=== PATIENT | female | born 1995 | race Caucasian/White ===

== ENCOUNTER 2019-02-16 14:49 | Emergency (ER) | payer BC ==
--- NOTE | 2019-02-16 15:18 | PDOC ---
History of Present Illness - General Stated Complaint: SUBSTANCE ABUSE Time Seen by Provider: 02/16/19 15:17 - History of Present Illness Initial Comments: Patient has been previously admitted as Alexander Cynthia, now changed to Cynthia Akhtar after her divorce. 02/16/19 15:18 PCP: Patient is a 23 year old female brought in to the ED by EMS after she was found at her friends house hallucinating. Patient is non verbal not a baseline. Her ex boyfriend provided the history. Patient went to a green party yesterday, was picked up by her friend at 9pm, smoked weed once then after 5 mins, pt started hallucinating. Windows were closed. She started staring and wouldn't respond to any questions asked. Pt slept at her friends house, after she woke up, she was non verbal, staring, patting to herself. Friend called 911, vitals:BP 120/70 mmHg, 100 bpm, EKG normal as per EMS. The only word she told the project manager entertainment and media was " I am okay". In the ED, patient has been staring, non verbal, patting herself with her hands on the upper extremity. When asked, she noded indicating she wants to go home. ROS unobtainable. 15:00 Call placed to patient's mother who came in to the ED. Stated she has a h.o Post depression with psychosis a month after she had her first child in January,, was admitted to [facility], admitted for a week then discharged. The second episode happened in Jun, [address] [facility] for a week and discharged home on Zoloft. She took it for a while , then stopped after she used to feel sleepy with the meds. Has been seeing a psychologist on/off. Doesn' t have a psychiatrist. Mother reports that they think it was triggered by smoking Marijuana. When she gets this type of psychosis, she is unable to lift herself up. Past Medical Hx: Post depression with psychosis (2 episodes), Learning disability, childhood asthma Allergies: NKDA Past Surgical Hx: 4 yrs ago Social hx: Lives with her sister. . Has a 4 year old son. Smoking- Denies Alcohol- Denies Drugs- Marijuana last night. Occupation: assistant branch operations manager Family Hx: Non contributory. Past History - Travel Traveled outside of the country in the last 30 days: No Close contact w/someone who was outside of country & ill: No - Past Medical History Allergies/Adverse Reactions: Allergies Allergy/AdvReac Type Severity Reaction Status Date / Time No Known Allergies Allergy Verified 02/16/19 17:06 Home Medications: Ambulatory Orders NK [No Known Home Medication] 02/16/19 Review of Systems - Review of Systems Able to Perform ROS?: No Is the patient limited Bengali proficient: No *Physical Exam - Physical Exam Comments: 02/16/19 15:33 General: Young female, lying in bed, staring, non verbal. Nodding to few questions only. HEENT: No Pallor or icterus. Chest: B/L lungs clear, no added sounds CVS: Regular rate and rhythm, S1, S2, no murmur Abdomen: Soft, non tender Ext: No edema. ED Treatment Course - LABORATORY CBC & Chemistry Diagram: 02/16/19 15:47 02/16/19 15:47 Medical Decision Making - Medical Decision Making 02/16/19 15:35 Patient is a 23 year old female with hx of Post depression with psychosis (2 episodes), Learning disability, childhood asthma brought in to the ED by EMS after she was found at her friends house hallucinating 5 minutes after she smoked weed. ---Will send basic labs: CBC, CMP, TSH, UA, urine tox, serum preg --- 1:1 observation. 02/16/19 16:[address] Villafuerte who recommends to admit the patient. U. tox positive for marijuana 02/16/19 16:51 Microblog symphony for admission. 02/16/19 16:55 Will keep patient in the ED for observation. Dr. Villafuerte to see the patient in the morning. Ordered Alprazolam 0.25 mg but pt refused. Ativan 2mg IM given. Patient slept for a while, woke up, started crying. Still non verbal. Will observe overnight in the ED. *DC/Admit/Observation/Transfer Diagnosis at time of Disposition: Psychosis - Referrals - Patient Instructions - Post Discharge Activity
[2019-02-16 15:39] VITALS: BMI 25.4
[2019-02-16 15:55] LABS: HEMATOCRIT 39.8 % (32.4-45.2); HEMOGLOBIN 13.5 GM/dL (10.7-15.3); MCH 34.9 pg (25.7-33.7); MEAN CELL VOLUME 102.4 fl (80-96); MEAN PLT VOLUME 9.2 fl (7.5-11.1); PLATELET COUNT 177 K/MM3 (134-434); RBC 3.89 M/mm3 (3.60-5.2); RDW 12.9 % (11.6-15.6); WHITE BLOOD COUNT 11.5 K/mm3 (4.0-10.0)
--- NOTE | 2019-02-16 16:01 | PDOC ---
Documentation entered by Alonso Salas SCRIBE, acting as scribe for Arturo Montesinos MD. Arturo Montesinos MD: This documentation has been prepared by the Josue mckoy Daniel, SCRIBE, under my direction and personally reviewed by me in its entirety. I confirm that the documentation accurately reflects all work, treatment, procedures, and medical decision making performed by me. Attending Attestation - Resident Resident Name: Augusta Lomeli - ED Attending Attestation I have performed the following: I have examined & evaluated the patient, The case was reviewed & discussed with the resident, I agree w/resident's findings & plan, Exceptions are as noted - HPI HPI: 02/16/19 15:08 The patient is a 23 year old female with a past medical history of depression with psychosis brought in by EMS today for evaluation of altered mental status. The patients ex-boyfriend reports that he picked the patient up from a democrat last night around 9 pm and that they smoked marijuana. He reports that she only smoked one puff. The ex-boyfriend reports that after smoking she became non verbal, started staring, and patting her arms. He notes that this behaviour continued today even after sleeping. Patient is non verbal in ER. As per patient's family, this is consistent with her previous episodes of psychosis. Patient has been admitted to [facility] for episodes of depression w/ psychosis. Her last episode was in 2014. She is not currently on any meds. - Physicial Exam PE: 02/16/19 15:08 GENERAL: Awake, alert, in no acute distress. HEAD: No signs of trauma EYES: PERRLA, EOMI, sclera anicteric, conjunctiva clear ENT: Auricles normal inspection, hearing grossly normal, nares patent, oropharynx clear without exudates. Moist mucosa NECK: Nontender, no stepoffs, Normal ROM, supple, no lymphadenopathy, JVD, or masses LUNGS: Breath sounds equal, clear to auscultation bilaterally. No wheezes, and no crackles HEART: Regular rate and rhythm, normal S1 and S2, no murmurs, rubs or gallops ABDOMEN: Soft, nontender, normoactive bowel sounds. No guarding, no rebound. No masses EXTREMITIES: Normal range of motion, no edema. No clubbing or cyanosis. No cords, erythema, or tenderness NEUROLOGICAL: Cranial nerves II through XII intact. 5/5 strength and sensation in all extremities SKIN: Warm, Dry, normal turgor, no rashes or lesions noted. PSYCH: Nonverbal, patting her hands occasionally, wandering gaze - Medical Decision Making 02/16/19 16:00 23 F with acute altered mental status after smoking marijuana last night. Now nonverbal, possibly responding to internal stimuli. Pt likely having psychotic episode, induced by marijuana. - Labs, tox screen - Psych consult - 1:1 observation 02/16/19 16:[address] Mccallum, who recommends observing overnight, giving ativan PRN for agitation. He will evaluate pt in the morning. Pt signed out to oncoming attending at 5pm
[2019-02-16 16:21] LABS: EPI CELLS 4.6 /HPF (0-5/HPF); HYALINE CASTS 21 /lpf (0-8); PH,URINE 5.5 (5.0-8.0); URINE APPEARANCE CLEAR; URINE BACTERIA 2.4 /hpf (NEGATIVE); URINE BILIRUBIN NEGATIVE (NEGATIVE); URINE COLOR YELLOW; URINE GLUCOSE (UA) NEGATIVE (NEGATIVE); URINE KETONE 1+ (NEGATIVE); URINE LEUK ESTERASE NEGATIVE (NEGATIVE); URINE NITRITE NEGATIVE (NEGATIVE); URINE PROTEIN NEGATIVE (NEGATIVE); URINE RBC 3 /hpf (0-4); URINE UROBILINOGEN 0.2 mg/dL (0.2-1.0)
[2019-02-16 16:22] LABS: ALBUMIN 4.2 g/dl (3.4-5.0); BILIRUBIN,TOTAL 0.6 mg/dL (0.2-1); BLOOD UREA NITROGEN 11.2 mg/dL (7-18); CALCIUM 9.2 mg/dL (8.5-10.1); CREATININE 0.8 mg/dL (0.55-1.3); POTASSIUM 3.9 mmol/L (3.5-5.1); TOT PROT 7.9 g/dl (6.4-8.2)
[2019-02-16 16:38] LABS: COCAINE, UR NEGATIVE ng/ml (CUTOFF=300); METHADONE, UR NEGATIVE ng/ml (CUTOFF=300); OPIATES, URI NEGATIVE ng/ml (CUTOFF=300); PHENCYCLIDINE,URINE NEGATIVE ng/ml (CUTOFF=25); URINE AMPHETAMINES NEGATIVE ng/ml (CUTOFF=500); URINE BARBITURATES NEGATIVE ng/ml (CUTOFF=200); URINE BENZODIAZEPINES NEGATIVE ng/ml (CUTOFF=200)
[2019-02-16 16:39] LABS: URINE WBC 12.6 /hpf (0-5)
[2019-02-16] MEDS ORDERED: LORazepam 2 MG/ML SDV VIAL IVPUSH ONE (16:54)
[2019-02-16] MEDS ORDERED: LORazepam 2 MG/ML SDV VIAL ONE ×2 (17:07→17:35)
[2019-02-16] MEDS ORDERED: ALPRAZolam 0.25 MG TABLET PO ONE (17:12)
[2019-02-16] MEDS ORDERED: ALPRAZolam 0.25 MG TABLET ONE (17:14)
[2019-02-16] MEDS ORDERED: LORazepam 2 MG/ML SDV VIAL IM ONE (17:26)
[2019-02-17 07:09] VITALS: BP 93/59; PULSE 102; TEMP 97.7
--- NOTE | 2019-02-17 09:08 | CON.PSY ---
Psychiatry Consult Chief Complaint: 23 Marcie kelby female mother of 4 year old child brought EWR after smoking Marijuana probably laced with PCP. She apparantly was hallucinatoing and apperaed to be internally preoccupied. She had an uneventful night and apperas to florina herself 5this am. Symptoms: reports: Depersonalization, Hallucinations - Previous Psychiatric Treatment Outpatient: None Inpatient: None - Previous Substance Abuse Treatment Outpatient: None Inpatient: None - Reason for Previous Treatment Reason for Previous Treatment: Drug Abuse - Allergies Allergies: Allergies Allergy/AdvReac Type Severity Reaction Status Date / Time No Known Allergies Allergy Verified 02/16/19 17:06 - Current Living Status Usual Living Arrangement: With Parent - Current Mental Status Evaluation Appearance: Well Groomed Attitude: Cooperative - Mood Mood: Euthymic - Speech/Language Expressive: Coherent - Psychomotor Activity Psychomotor Activity: Normal - Thought Process Thought Process: Intact - Thought Content Hallucinations: Absent Delusions: Absent - Self Perception Self Perception: No Impairment - Cognition Attention: Alert Orientation: Time Memory, Immediate Recall: Intact Memory, Short Term: 3/3 Memory, Remote with Promptin/3 - Concentration Serial Sevens Intact: Yes Simple Calculations Intact: Yes - Abstraction Proverb Interpretation: Intact Judgement: Minimally Impaired - Insight Insight: Intact - Impulse Control Impulse Control: Good Control - Suicidal Ideation Suicidal Ideation: No - Homicidal Ideation Homicidal Ideation: No Assessment/Plan 1) Patient Psychiatrically cleared to be Discharged. 2)No Psych follow up needed.
--- NOTE | 2019-02-17 09:26 | PDOC ---
*Physical Exam - Vital Signs Last Vital Signs Temp Pulse Resp BP Pulse Ox 97.7 F 102 H 102 H 93/59 L 96 02/17/19 07:01 02/17/19 07:01 02/17/19 07:01 02/17/19 07:01 02/17/19 07:01 ED Treatment Course - LABORATORY CBC & Chemistry Diagram: 02/16/19 15:47 02/16/19 15:47 - ADDITIONAL ORDERS Additional order review: 02/16/19 15:47 RBC 3.89 MCV 102.4 H MCHC 34.0 RDW 12.9 MPV 9.2 - Medications Given in the ED: ED Medications Discontinued Medications Generic Name Dose Route Start Last Admin Trade Name Freq PRN Reason Stop Dose Admin Alprazolam 0.25 mg 02/16/19 17:12 02/16/19 17:41 Xanax - PO 02/16/19 17:13 Not Given ONCE ONE Lorazepam 2 mg 02/16/19 16:52 02/16/19 17:41 Ativan Injection - IVPUSH 02/16/19 16:53 Not Given ONCE ONE Lorazepam 1 mg 02/16/19 16:54 02/16/19 17:41 Ativan Injection - IVPUSH 02/16/19 16:55 Not Given ONCE ONE Lorazepam 2 mg 02/16/19 17:26 02/16/19 17:40 Ativan Injection - IM 02/16/19 17:27 2 mg ONCE ONE Administration Medical Decision Making - Medical Decision Making 02/17/19 09:26 pt seen by psych in the AM at 900, cleared by Dr Mccallum, no events, no hallucinations or delusions. no si or hi, sitter removed likely events from PCP/marijuana use cautioned on side effect profile of marijuana and drugs Pt to be discharged in stable condition. Patient made aware of clinical impression, treatment recommendations and disposition plan, return precautions discussed (including but not limited to new or persistent/worsening symptoms, pain, fevers, or signs of infection, chest pain, respiratory distress, inability to tolerate oral intake, dehydration, syncope, or neurologic changes) . Follow up with PMD and/or specialist as recommended, follow up information provided, take medications as instructed for duration of time. continue with supportive care, avoid triggers and precipitants. All questions answered to patient's satisfaction and expressed understanding and comfort with this. At the time of discharge, the patient is alert, clinically improved, tolerating po and verbalizes understanding of instructions, satisfied with the care received and felt comfortable with the plan. Patient does not suffer from an acute life- threatening medical condition at this time and is safe for outpatient follow- up. *DC/Admit/Observation/Transfer Diagnosis at time of Disposition: Marijuana intoxication - Discharge Dispostion Disposition: HOME Condition at time of disposition: Improved Decision to Admit order: No - Referrals Referrals: Luis Mccallum MD [Staff Physician] - [facility] [place] [Provider Group] [facility] [Provider Group] - Patient Instructions Printed Discharge Instructions: Toxicology Screen, Drug Abuse and Drug Addiction Additional Instructions: you were evaluated in the department for hallucinations likely secondary to marijuana use be aware of side effects of street drugs, as this can severely impair you this can affect your health and baby negatively follow up with psychiatry and primary doctor for further management and evaluation and care. - Post Discharge Activity
[2019-02-17] MEDS ORDERED: ACETAMINOPHEN 325 MG TABLET (FP) PO ONE (09:53)
[2019-02-17] MEDS ORDERED: ACETAMINOPHEN 325 MG TABLET (FP) ONE (09:55)
== END 2019-02-17 11:45 | disposition home or self-care (01) ==
LOC: JER 14:49
DX: F12.122 Cannabis abuse with intoxication with perceptual disturbance (principal)
CPT/HCPCS: 36415; 80053; 80307; 81003; 84443; 84703; 85027; 99283-25

== ENCOUNTER 2020-11-16 15:27 | Emergency (ER) | payer BC, OTHER ==
[2020-11-16 15:45] VITALS: BP 113/74; PULSE 75; TEMP 97.8; BMI 21.1
[2020-11-16 17:23] LABS: BASO % 0.2 % (0-2.0); EOS % 0.9 % (0-4.5); HEMATOCRIT 38.2 % (32.4-45.2); HEMOGLOBIN 12.9 GM/dL (10.7-15.3); LYMPH % 19.1 % (8-40); MCH 34.9 pg (25.7-33.7); MCHC 33.8 g/dl (32.0-36.0); MEAN CELL VOLUME 103.2 fl (80-96); MEAN PLT VOLUME 9.5 fl (7.5-11.1); MONO % 6.5 % (3.8-10.2); NEUT % 73.3 % (42.8-82.8); PLATELET COUNT 193 K/MM3 (134-434); RDW 12.6 % (11.6-15.6); WHITE BLOOD COUNT 10.7 K/mm3 (4.0-10.0)
[2020-11-16 17:28] LABS: URINE APPEARANCE CLEAR; URINE BILIRUBIN NEGATIVE (NEGATIVE); URINE COLOR YELLOW; URINE GLUCOSE (UA) NEGATIVE (NEGATIVE); URINE KETONE NEGATIVE (NEGATIVE); URINE LEUK ESTERASE NEGATIVE (NEGATIVE); URINE NITRITE NEGATIVE (NEGATIVE); URINE PROTEIN NEGATIVE (NEGATIVE); URINE UROBILINOGEN 0.2 mg/dL (0.2-1.0)
[2020-11-16 17:46] LABS: POTASSIUM 3.8 mmol/L (3.5-5.1)
[2020-11-16 17:49] LABS: BLOOD UREA NITROGEN 10.4 mg/dL (7-18); CALCIUM 9.4 mg/dL (8.5-10.1)
[2020-11-16 17:52] LABS: CREATININE 0.8 mg/dL (0.55-1.3)
[2020-11-16 17:53] LABS: BILIRUBIN,TOTAL 0.7 mg/dL (0.2-1); TOT PROT 8.2 g/dl (6.4-8.2)
[2020-11-16] MEDS ORDERED: CEFTRIAXONE 1 GM in DEXTROSE 5%-WATER - 100 ML IVPB ONE (19:30)
[2020-11-16] MEDS ORDERED: CEFTRIAXONE 1 GM/50 ML BAG ONE (19:59)
[2020-11-16] MEDS ORDERED: IBUPROFEN 400 MG TABLET (FP) PO ONE ×2 (20:39→20:41)
== END 2020-11-16 20:44 | disposition home or self-care (01) ==
LOC: JER 15:27
DX: R10.2 Pelvic and perineal pain (principal); N83.201 Unspecified ovarian cyst, right side; N83.202 Unspecified ovarian cyst, left side
CPT/HCPCS: 36415; 74177-TC; 76830-TC; 80053; 81003; 84703; 85025; 87070; 87086; 87205; 87491; 87591; 87661; 99285-25; Q9967

== ENCOUNTER 2021-06-16 10:31 | Inpatient (IN) | payer OTHER ==
[2021-06-16] MEDS ORDERED: DOXYCYCLINE HYCLATE 100 MG CAPSULE PO ONE ×2 (11:40→12:09)
[2021-06-16] MEDS ORDERED: cefTRIAXone SODIUM 1 GM VIAL ONE (12:09)
[2021-06-16 12:12] LABS: BASO % 0.1 % (0-2.0); EOS % 0.3 % (0-4.5); HEMATOCRIT 36.6 % (32.4-45.2); HEMOGLOBIN 12.6 GM/dL (10.7-15.3); LYMPH % 13.3 % (8-40); MCH 35.5 pg (25.7-33.7); MCHC 34.4 g/dl (32.0-36.0); MEAN CELL VOLUME 103.2 fl (80-96); MEAN PLT VOLUME 8.9 fl (7.5-11.1); MONO % 5.7 % (3.8-10.2); NEUT % 80.6 % (42.8-82.8); PLATELET COUNT 199 10^3/uL (134-434); RBC 3.55 M/mm3 (3.60-5.2); RDW 12.5 % (11.6-15.6); WHITE BLOOD COUNT 12.5 K/mm3 (4.0-10.0)
[2021-06-16 12:34] LABS: HCG,QUALITATIVE URINE Negative
[2021-06-16 12:35] LABS: EPI CELLS 21 /uL (0-25.1); HYALINE CASTS 21 /uL (0-3.1); URINE APPEARANCE CLOUDY; URINE BACTERIA 288 /uL (0-1359); URINE BILIRUBIN NEGATIVE (NEGATIVE); URINE COLOR DK YELLOW; URINE GLUCOSE (UA) NEGATIVE (NEGATIVE); URINE KETONE 1+ (NEGATIVE); URINE LEUK ESTERASE 2+ (NEGATIVE); URINE NITRITE NEGATIVE (NEGATIVE); URINE PROTEIN 1+ (NEGATIVE); URINE RBC 17 /uL (0-23.9); URINE UROBILINOGEN 0.2 mg/dL (0.2-1.0); URINE WBC 559 /uL (0-25.8)
[2021-06-16 12:45] LABS: CALCIUM 8.7 mg/dL (8.5-10.1)
[2021-06-16 12:46] LABS: ALBUMIN 3.6 g/dl (3.4-5.0); BLOOD UREA NITROGEN 11.2 mg/dL (7-18)
[2021-06-16 12:49] LABS: CREATININE 0.9 mg/dL (0.55-1.3)
[2021-06-16 12:50] LABS: BILIRUBIN,TOTAL 0.9 mg/dL (0.2-1); TOT PROT 7.8 g/dl (6.4-8.2)
[2021-06-16 12:56] LABS: URINE CRYSTALS PRSENT CA OXALATES /hpf
[2021-06-16 13:53] LABS: SYPHILIS W/ RPR CONF NON-REACTIVE (NONREACTIVE)
[2021-06-16] MEDS ORDERED: metroNIDAZOLE 250 MG TABLET PO ONE (14:09)
[2021-06-16] MEDS ORDERED: metroNIDAZOLE 250 MG TABLET ONE (14:13)
[2021-06-16 14:22] LABS: HIV INTERPRETATION NEGATIVE (NEGATIVE)
[2021-06-16] MEDS ORDERED: CEFTRIAXONE 500 MG in DEXTROSE 5%-WATER - 50 ML IVPB ONE (15:29)
[2021-06-16] MEDS ORDERED: SODIUM CHLORIDE 0.9% 500 ML INFUS.BAG IV ONE (15:29)
[2021-06-16] MEDS ORDERED: ACETAMINOPHEN 1000 MG/100 ML VIAL IVPB ONE (15:54)
[2021-06-16] MEDS ORDERED: ACETAMINOPHEN INJECTION 100 ML IVPB ONE (16:26)
[2021-06-16] MEDS ORDERED: ACETAMINOPHEN 325 MG TABLET (FP) PO PRN (18:17)
[2021-06-16] MEDS ORDERED: morphine SULFATE 4 MG/ML VIAL IVPUSH PRN (21:22)
[2021-06-16] MEDS ORDERED: metroNIDAZOLE 250 MG TABLET PO SCH (22:00)
[2021-06-16] MEDS ORDERED: DOXYCYCLINE HYCLATE 100 MG VIAL ONE (22:23)
[2021-06-16] MEDS ORDERED: DEXTROSE 5%-WATER 100 ML IVPB ONE (22:23)
[2021-06-16] MEDS: DOXYCYCLINE INJECTION 100 MG in DEXTROSE 5%-WATER 100 ML IVPB SCH (22:33)
[2021-06-16 23:59] VITALS: BMI 21.9
[2021-06-17 08:32] LABS: BASO % 0.3 % (0-2.0); EOS % 2.5 % (0-4.5); HEMATOCRIT 31.8 % (32.4-45.2); LYMPH % 26.2 % (8-40); MCH 35.5 pg (25.7-33.7); MCHC 34.7 g/dl (32.0-36.0); MEAN CELL VOLUME 102.4 fl (80-96); MEAN PLT VOLUME 8.5 fl (7.5-11.1); MONO % 9.1 % (3.8-10.2); NEUT % 61.9 % (42.8-82.8); PLATELET COUNT 168 10^3/uL (134-434); RBC 3.11 M/mm3 (3.60-5.2); RDW 12.7 % (11.6-15.6); WHITE BLOOD COUNT 8.4 K/mm3 (4.0-10.0)
[2021-06-17 09:01] LABS: BLOOD UREA NITROGEN 7.3 mg/dL (7-18); CALCIUM 9.2 mg/dL (8.5-10.1); MAGNESIUM 1.6 mg/dL (1.8-2.4)
[2021-06-17 09:03] LABS: CREATININE 0.7 mg/dL (0.55-1.3); PHOSPHOROUS 2.9 mg/dL (2.5-4.9)
[2021-06-17] MEDS ORDERED: DOXYCYCLINE HYCLATE 100 MG VIAL ONE ×2 (09:03→20:21)
[2021-06-17] MEDS ORDERED: PT OWN MED DRAWER 7, Y5N ONE ×2 (09:03→12:04)
[2021-06-17] MEDS ORDERED: DEXTROSE 5%-WATER 100 ML IVPB ONE ×2 (09:03→20:21)
[2021-06-17] MEDS: FERROUS SO4 325 MG TABLET (FP) PO SCH ×2 (09:09→21:03)
[2021-06-17] MEDS ORDERED: MAGNESIUM OXIDE 400 MG TABLET (FP) PO ONE (09:11)
[2021-06-17] MEDS: DOXYCYCLINE INJECTION 100 MG in DEXTROSE 5%-WATER 100 ML IVPB SCH ×2 (10:24→21:04)
[2021-06-17] MEDS ORDERED: cefTRIAXone SODIUM 1 GM VIAL ONE (12:04)
[2021-06-17] MEDS ORDERED: DEXTROSE 5%-WATER - 50 ML IVPB ONE (12:05)
[2021-06-17] MEDS: PRENATAL VITAMINS W/ FOLIC ACID TABLET (FP) PO SCH (12:10)
[2021-06-17] MEDS: LACTOBACILLUS ACIDOPHILUS 1 TABLET PO SCH (12:10)
[2021-06-17] MEDS: CEFTRIAXONE 1 GM in DEXTROSE 5%-WATER - 50 ML IVPB SCH (12:11)
[2021-06-17] MEDS ORDERED: PANTOPRAZOLE 20 MG TABLET PO ONE (16:55)
[2021-06-18 09:35] LABS: BASO % 0.2 % (0-2.0); EOS % 3.6 % (0-4.5); HEMATOCRIT 34.9 % (32.4-45.2); HEMOGLOBIN 12.2 GM/dL (10.7-15.3); LYMPH % 33.6 % (8-40); MCH 35.9 pg (25.7-33.7); MEAN CELL VOLUME 102.4 fl (80-96); MEAN PLT VOLUME 8.8 fl (7.5-11.1); MONO % 6.9 % (3.8-10.2); NEUT % 55.7 % (42.8-82.8); PLATELET COUNT 208 10^3/uL (134-434); RBC 3.41 M/mm3 (3.60-5.2); RDW 12.4 % (11.6-15.6); WHITE BLOOD COUNT 8.1 K/mm3 (4.0-10.0)
[2021-06-18] MEDS ORDERED: cefTRIAXone SODIUM 1 GM VIAL ONE (10:13)
[2021-06-18] MEDS ORDERED: DOXYCYCLINE HYCLATE 100 MG VIAL ONE ×2 (10:13→21:18)
[2021-06-18] MEDS ORDERED: DEXTROSE 5%-WATER 100 ML IVPB ONE ×2 (10:13→21:18)
[2021-06-18] MEDS ORDERED: DEXTROSE 5%-WATER - 50 ML IVPB ONE (10:14)
[2021-06-18] MEDS: LACTOBACILLUS ACIDOPHILUS 1 TABLET PO SCH (10:26)
[2021-06-18] MEDS: PANTOPRAZOLE 20 MG TABLET PO SCH (10:26)
[2021-06-18] MEDS: FERROUS SO4 325 MG TABLET (FP) PO SCH ×2 (10:26→21:25)
[2021-06-18] MEDS: DOXYCYCLINE INJECTION 100 MG in DEXTROSE 5%-WATER 100 ML IVPB SCH ×2 (10:27→21:26)
[2021-06-18] MEDS: CEFTRIAXONE 1 GM in DEXTROSE 5%-WATER - 50 ML IVPB SCH (10:36)
[2021-06-18] MEDS: PRENATAL VITAMINS W/ FOLIC ACID TABLET (FP) PO SCH (10:36)
[2021-06-18 11:19] LABS: ALBUMIN 3.3 g/dl (3.4-5.0); BLOOD UREA NITROGEN 15.6 mg/dL (7-18); MAGNESIUM 1.9 mg/dL (1.8-2.4)
[2021-06-18 11:22] LABS: CREATININE 0.8 mg/dL (0.55-1.3)
[2021-06-18 11:23] LABS: TOT PROT 7.5 g/dl (6.4-8.2)
[2021-06-18 11:24] LABS: BILIRUBIN,TOTAL 0.4 mg/dL (0.2-1)
[2021-06-19] MEDS ORDERED: DOXYCYCLINE HYCLATE 100 MG VIAL ONE ×2 (09:04→21:17)
[2021-06-19] MEDS ORDERED: cefTRIAXone SODIUM 1 GM VIAL ONE (09:05)
[2021-06-19] MEDS ORDERED: DEXTROSE 5%-WATER - 50 ML IVPB ONE (09:05)
[2021-06-19] MEDS ORDERED: DEXTROSE 5%-WATER 100 ML IVPB ONE ×2 (09:05→21:17)
[2021-06-19] MEDS ORDERED: PT OWN MED DRAWER 7, Y5N ONE ×2 (09:05→12:01)
[2021-06-19] MEDS: CEFTRIAXONE 1 GM in DEXTROSE 5%-WATER - 50 ML IVPB SCH (09:33)
[2021-06-19 09:34] LABS: BASO % 0.2 % (0-2.0); EOS % 3.4 % (0-4.5); HEMATOCRIT 34.8 % (32.4-45.2); HEMOGLOBIN 12.2 GM/dL (10.7-15.3); LYMPH % 35.6 % (8-40); MCH 35.9 pg (25.7-33.7); MCHC 35.1 g/dl (32.0-36.0); MEAN CELL VOLUME 102.1 fl (80-96); MEAN PLT VOLUME 8.9 fl (7.5-11.1); MONO % 7.3 % (3.8-10.2); NEUT % 53.5 % (42.8-82.8); PLATELET COUNT 225 10^3/uL (134-434); RBC 3.41 M/mm3 (3.60-5.2); RDW 12.4 % (11.6-15.6)
[2021-06-19] MEDS: PRENATAL VITAMINS W/ FOLIC ACID TABLET (FP) PO SCH (09:34)
[2021-06-19] MEDS: PANTOPRAZOLE 20 MG TABLET PO SCH (09:34)
[2021-06-19] MEDS: FERROUS SO4 325 MG TABLET (FP) PO SCH ×2 (09:34→21:21)
[2021-06-19] MEDS: LACTOBACILLUS ACIDOPHILUS 1 TABLET PO SCH (09:34)
[2021-06-19 09:36] LABS: ALBUMIN 3.5 g/dl (3.4-5.0); CALCIUM 8.7 mg/dL (8.5-10.1)
[2021-06-19 09:37] LABS: BLOOD UREA NITROGEN 15.6 mg/dL (7-18); MAGNESIUM 1.9 mg/dL (1.8-2.4)
[2021-06-19 09:40] LABS: CREATININE 0.9 mg/dL (0.55-1.3)
[2021-06-19 09:41] LABS: BILIRUBIN,TOTAL 0.4 mg/dL (0.2-1); TOT PROT 7.4 g/dl (6.4-8.2)
[2021-06-19] MEDS: DOXYCYCLINE INJECTION 100 MG in DEXTROSE 5%-WATER 100 ML IVPB SCH ×2 (10:33→21:22)
[2021-06-20] MEDS ORDERED: DEXTROSE 5%-WATER 100 ML IVPB ONE ×2 (09:17→20:34)
[2021-06-20] MEDS ORDERED: DOXYCYCLINE HYCLATE 100 MG VIAL ONE ×2 (09:17→20:34)
[2021-06-20] MEDS ORDERED: DEXTROSE 5%-WATER - 50 ML IVPB ONE (09:18)
[2021-06-20] MEDS ORDERED: PT OWN MED DRAWER 7, Y5N ONE (09:18)
[2021-06-20] MEDS ORDERED: cefTRIAXone SODIUM 1 GM VIAL ONE (09:18)
[2021-06-20] MEDS: FERROUS SO4 325 MG TABLET (FP) PO SCH ×2 (09:33→21:18)
[2021-06-20] MEDS: PANTOPRAZOLE 20 MG TABLET PO SCH (09:33)
[2021-06-20] MEDS: LACTOBACILLUS ACIDOPHILUS 1 TABLET PO SCH (09:33)
[2021-06-20] MEDS: PRENATAL VITAMINS W/ FOLIC ACID TABLET (FP) PO SCH (09:33)
[2021-06-20] MEDS: CEFTRIAXONE 1 GM in DEXTROSE 5%-WATER - 50 ML IVPB SCH (09:34)
[2021-06-20 09:41] LABS: BASO % 0.4 % (0-2.0); EOS % 2.5 % (0-4.5); HEMATOCRIT 35.5 % (32.4-45.2); HEMOGLOBIN 12.2 GM/dL (10.7-15.3); LYMPH % 34.7 % (8-40); MCH 35.1 pg (25.7-33.7); MCHC 34.2 g/dl (32.0-36.0); MEAN CELL VOLUME 102.7 fl (80-96); MEAN PLT VOLUME 8.9 fl (7.5-11.1); NEUT % 54.4 % (42.8-82.8); PLATELET COUNT 207 10^3/uL (134-434); RBC 3.46 M/mm3 (3.60-5.2); RDW 12.4 % (11.6-15.6)
[2021-06-20 10:51] LABS: INR 1.23 (0.83-1.09); PROTHROMBIN TIME (PATIENT) 13.8 SEC (9.7-13.0)
[2021-06-20] MEDS: DOXYCYCLINE INJECTION 100 MG in DEXTROSE 5%-WATER 100 ML IVPB SCH (12:23)
[2021-06-20] MEDS ORDERED: diphenhydrAMINE HCL 25 MG CAPSULE (FP) PO ONE (20:23)
[2021-06-21] MEDS: DOXYCYCLINE INJECTION 100 MG in DEXTROSE 5%-WATER 100 ML IVPB SCH (00:58)
[2021-06-21] MEDS ORDERED: methylPREDNISolone NA SUCC 40 MG/1 ML VIAL IVPUSH ONE (02:01)
[2021-06-21] MEDS ORDERED: FAMOTIDINE 20 MG/50 ML IVPB 20 MG/50 ML MG IVPB ONE (02:05)
[2021-06-21] MEDS ORDERED: diphenhydrAMINE HCL 25 MG CAPSULE (FP) PO ONE ×2 (02:18→02:30)
[2021-06-21] MEDS ORDERED: FAMOTIDINE 20 MG TABLET PO ONE (02:18)
[2021-06-21] MEDS ORDERED: predniSONE 20 MG TABLET (UD) PO ONE (02:19)
[2021-06-21 09:30] LABS: BASO % 0.2 % (0-2.0); EOS % 0.1 % (0-4.5); HEMOGLOBIN 12.8 GM/dL (10.7-15.3); LYMPH % 12.2 % (8-40); MCH 35.6 pg (25.7-33.7); MCHC 34.7 g/dl (32.0-36.0); MEAN CELL VOLUME 102.5 fl (80-96); MEAN PLT VOLUME 8.8 fl (7.5-11.1); NEUT % 86.5 % (42.8-82.8); PLATELET COUNT 247 10^3/uL (134-434); RBC 3.61 M/mm3 (3.60-5.2); RDW 12.2 % (11.6-15.6); WHITE BLOOD COUNT 7.2 K/mm3 (4.0-10.0)
[2021-06-21] MEDS: FERROUS SO4 325 MG TABLET (FP) PO SCH (09:44)
[2021-06-21] MEDS: PRENATAL VITAMINS W/ FOLIC ACID TABLET (FP) PO SCH (09:44)
[2021-06-21 09:45] LABS: CHLORIDE 101 mmol/L (98-107); SODIUM 134 mmol/L (136-145)
[2021-06-21] MEDS: PANTOPRAZOLE 20 MG TABLET PO SCH (09:45)
[2021-06-21] MEDS: LACTOBACILLUS ACIDOPHILUS 1 TABLET PO SCH (09:45)
[2021-06-21 10:00] LABS: ALBUMIN 3.8 g/dl (3.4-5.0); ANION GAP 7 MMOL/L (8-16); BLOOD UREA NITROGEN 12.8 mg/dL (7-18); CALCIUM 9.4 mg/dL (8.5-10.1); CO2 26 mmol/L (21-32); GLUCOSE,RANDOM 114 mg/dL (74-106)
[2021-06-21] MEDS ORDERED: CEFUROXIME AXETIL 500 MG TABLET PO SCH (10:00)
[2021-06-21 10:03] LABS: CREATININE 0.9 mg/dL (0.55-1.3); MAGNESIUM 2.2 mg/dL (1.8-2.4)
[2021-06-21 10:04] LABS: SGOT/AST 19 U/L (15-37); SGPT/ALT 24 U/L (13-61)
[2021-06-21 10:05] LABS: BILIRUBIN,TOTAL 0.6 mg/dL (0.2-1); TOT PROT 7.9 g/dl (6.4-8.2)
[2021-06-21 10:06] LABS: ALK PHOS 39 U/L (45-117)
[2021-06-21 18:23] VITALS: BP 105/59; PULSE 77; TEMP 97.5
[2021-06-22] MEDS ORDERED: metroNIDAZOLE 250 MG TABLET PO SCH (10:00)
[2021-06-22] MEDS ORDERED: DOXYCYCLINE HYCLATE 100 MG CAPSULE PO SCH (10:00)
== END 2021-06-21 19:26 | disposition home or self-care (01) | DRG 531 ==
LOC: JER 10:31 → JERBED 15:46 → J5S 22:17
PROVIDERS: ATTEND Nurse Practitioner Family
DX: N73.9 Female pelvic inflammatory disease, unspecified (principal); N83.209 Unspecified ovarian cyst, unspecified side; N70.93 Salpingitis and oophoritis, unspecified; N76.0 Acute vaginitis; R10.2 Pelvic and perineal pain; K59.00 Constipation, unspecified; N39.0 Urinary tract infection, site not specified; L50.8 Other urticaria; R07.89 Other chest pain
CPT/HCPCS: 36415; 71045-TC-FY; 74177-TC; 76830-TC; 80048; 80053; 81003; 82272; 82607; 83690; 83735; 84100; 84484; 84703; 85025; 85610; 86140; 86780; 87086; 87389; 87491; 87591; 93005; 93010; 99285-25; C9803; J0131; Q9967; U0003; U0005

== ENCOUNTER 2021-06-22 19:09 | Emergency (ER) | payer OTHER ==
[2021-06-22 19:14] VITALS: BP 126/81; PULSE 88; TEMP 98.8; BMI 23.0
== END 2021-06-22 20:23 | disposition home or self-care (01) ==
LOC: JER 19:09
DX: F41.9 Anxiety disorder, unspecified (principal)
CPT/HCPCS: 93005; 93010; 99283-25

== ENCOUNTER 2023-02-06 22:07 | Emergency (ER) | payer OTHER ==
[2023-02-06 22:13] VITALS: RESP 18; BMI 20.2
[2023-02-07] MEDS ORDERED: KETOROLAC TROMETHAMINE 30 MG/1 ML VIAL IM ONE (00:31)
[2023-02-07] MEDS ORDERED: KETOROLAC TROMETHAMINE 30 MG/1 ML VIAL ONE (00:36)
[2023-02-07] MEDS ORDERED: LORazepam 2 MG/ML SDV VIAL IM ONE (00:45)
[2023-02-07 01:36] VITALS: BP 120/80; PULSE 74; TEMP 99.2
== END 2023-02-07 01:51 | disposition home or self-care (01) ==
LOC: JER 22:07 → JERFT 22:07 → JER 02-07 01:51
PROC: 3E0233Z Introduction of Anti-inflammatory into Muscle, Percutaneous Approach (ICD-10-PCS; principal; 2023-02-07)
PROC: 3E023GC Introduction of Other Therapeutic Substance into Muscle, Percutaneous Approach (ICD-10-PCS; 2023-02-07)
DX: M54.2 Cervicalgia (principal); G44.209 Tension-type headache, unspecified, not intractable; R20.2 Paresthesia of skin; M62.838 Other muscle spasm; W23.0XXA Caught, crushed, jammed, or pinched between moving objects, initial encounter
CPT/HCPCS: 72050-TC-FY; 72070-TC-FY; 84703; 99284-25

== ENCOUNTER 2023-04-17 10:25 | Emergency (ER) | payer OTHER ==
[2023-04-17 10:49] VITALS: BP 116/79; PULSE 91; RESP 18; TEMP 97.9; BMI 22.2
[2023-04-17] MEDS ORDERED: LIDOCAINE 5% TOPICAL PATCH TP ONE (12:17)
[2023-04-17] MEDS ORDERED: ACETAMINOPHEN 500 MG TABLET (FP) PO ONE (12:17)
[2023-04-17] MEDS ORDERED: ACETAMINOPHEN 325 MG TABLET (FP) ONE (14:18)
[2023-04-17] MEDS ORDERED: LIDOCAINE 5% TOPICAL PATCH ONE ×2 (14:19→14:24)
[2023-04-17] MEDS ORDERED: KETOROLAC TROMETHAMINE 30 MG/1 ML VIAL IM ONE (15:34)
[2023-04-17] MEDS ORDERED: LIDOCAINE PATCH REMOVAL MC ONE (22:00)
== END 2023-04-17 18:18 | disposition home or self-care (01) ==
LOC: JER 10:25
DX: M54.2 Cervicalgia (principal); R51.9 Headache, unspecified; F29 Unspecified psychosis not due to a substance or known physiological condition; F41.9 Anxiety disorder, unspecified; V49.50XA Passenger injured in collision with unspecified motor vehicles in traffic accident, initial encounter; Y92.410 Unspecified street and highway as the place of occurrence of the external cause
CPT/HCPCS: 70450-TC; 71046-TC-FY; 71250-TC; 72125-TC; 72170-TC-FY; 73030-TC-RT-FY; 73060-TC-RT-FY; 73090-TC-RT-FY; 73552-TC-RT-FY; 73590-TC-RT-FY; 84703; 99285-25

== ENCOUNTER 2024-04-29 16:04 | Emergency (ER) | payer OTHER ==
[2024-04-29 16:14] VITALS: BP 117/74; PULSE 97; RESP 18; TEMP 98.8; BMI 23.0
[2024-04-29 17:58] LABS: BASO % 0.4 % (0-2.0); EOS % 2.3 % (0-4.5); HEMATOCRIT 37.9 % (32.4-45.2); LYMPH % 27.5 % (8-40); MCH 35.1 pg (25.7-33.7); MCHC 34.2 g/dl (32.0-36.0); MEAN CELL VOLUME 102.4 fl (80-96); MONO % 4.6 % (3.8-10.2); NEUT % 65.2 % (42.8-82.8); PLATELET COUNT 202 10^3/uL (134-434); RDW 12.5 % (11.6-15.6); WHITE BLOOD COUNT 6.6 K/mm3 (4.0-10.0)
[2024-04-29 18:00] LABS: URINE APPEARANCE CLEAR; URINE BILIRUBIN NEGATIVE (NEGATIVE); URINE COLOR YELLOW; URINE GLUCOSE (UA) NEGATIVE (NEGATIVE); URINE KETONE NEGATIVE (NEGATIVE); URINE LEUK ESTERASE NEGATIVE (NEGATIVE); URINE NITRITE NEGATIVE (NEGATIVE); URINE PROTEIN NEGATIVE (NEGATIVE)
[2024-04-29 18:11] LABS: HCG,QUALITATIVE URINE Negative
[2024-04-29 18:37] LABS: BLOOD UREA NITROGEN 9.1 mg/dL (7-18)
[2024-04-29 18:41] LABS: CREATININE 0.9 mg/dL (0.55-1.3)
[2024-04-29 18:42] LABS: BILIRUBIN,TOTAL 1.1 mg/dL (0.2-1); TOT PROT 7.5 g/dl (6.4-8.2)
[2024-04-29 19:29] LABS: HIV INTERPRETATION NEGATIVE (NEGATIVE)
== END 2024-04-29 19:15 | disposition home or self-care (01) ==
LOC: JERFT 16:04
DX: N89.8 Other specified noninflammatory disorders of vagina (principal); R35.0 Frequency of micturition; R21 Rash and other nonspecific skin eruption
CPT/HCPCS: 36415; 80053; 81003; 84703; 85025; 86803; 87086; 87389; 99283-25